=== PATIENT | male | born 1970 | race Caucasian/White ===

== ENCOUNTER 2024-09-17 14:51 | Emergency (ER) | payer OTHER, SELFPAY ==
[2024-09-17 15:06] VITALS: BP 145/77; PULSE 70; TEMP 36.6; O2SAT 99; BMI 22.8
--- NOTE | 2024-09-17 15:14 | XR_ITS ---
The [address] [address] Patient Name: TOMY FLORENTINO MRN: [id number] date: 1970 Sex: M Assigned Patient Location: ER Current Patient Location: ED.MAIN Accession/Order Number: [id number] Exam Date: 09/17/2024 15:20 Report Date: 09/17/2024 16:03 At the request of: SERJIO DUARTE Procedure: XR wrist LT min 3V EXAM: XR wrist LT min 3V HISTORY: laceration COMPARISON: None. TECHNIQUE: 3 views of the left wrist FINDINGS: There is no acute fracture or dislocation. No cortical erosion. There is lateral wrist laceration. No radiopaque foreign body or gas is noted within the soft tissue. XR/XR wrist LT min 3V IMPRESSION: No acute bony abnormality. Electronically authenticated by: SERA POTTER Date: 09/17/2024 16:03
--- NOTE | 2024-09-17 15:19 | ED.WOUNDLAC1 ---
HPI - Wound/Laceration General Chief Complaint: Wound/Laceration Stated Complaint: L HAND LACERATION Time Seen by Provider: 09/17/24 15:04 Source: patient and family Mode of arrival: walk-in Limitations: no limitations History of Present Illness HPI narrative: Patient is a 54-year-old male who presents to the emergency department for evaluation of a laceration to the left wrist. Patient is right-hand dominant. He states he was cutting a piece of wood with a razor blade and lacerated the radial aspect of the left wrist. Bleeding is controlled at this time. Unknown last tetanus. He had no other associated injuries. Related Data Previous Rx's ?Medication ?Instructions ?Recorded amoxicillin 875 mg-potassium 1 tab PO Q12H #20 tabs 09/17/24 clavulanate 125 mg tablet hydrocodone 5 mg-acetaminophen 325 1 tab PO Q6H PRN pain 3 days #12 09/17/24 mg tablet tabs ondansetron 4 mg disintegrating 4 mg PO Q6H PRN nausea and 09/17/24 tablet vomiting #12 tabs Allergies Allergy/AdvReac Type Severity Reaction Status Date / Time No Known Drug Allergies Allergy Verified 09/17/24 15:06 Review of Systems ROS Constitutional Denies: fever or chills Respiratory Denies: shortness of breath Gastrointestinal Denies: nausea or vomiting Musculoskeletal Reports: extremity pain; Denies: back pain or neck pain Integumentary/Breast Denies: rash Hematologic/Lymphatic Denies: easy bruising or easy bleeding PFSH PFSH Social History Little interest or pleasure in doing things: not at all Feeling down, depressed, or hopeless: not at all Exam Narrative Exam Narrative: Gen.: Awake, alert, in no distress Head: Normocephalic, atraumatic ENT: Moist mucous membranes Respiratory: No respiratory distress Extremities: 10 cm laceration extending from the first metacarpal laterally to the radial aspect of the wrist. There is no bony exposure. Patient is able to flex at the IP and MCP joints of the left thumb with limited extension of the left thumb at the IP and MCP joint. No visualized tendon laceration in the wound. Bleeding noted from a small capillary, no arterial bleeding or significant bleeding noted. Psych: Normal mood and affect Neuro: No focal neuro deficit Skin: Warm, dry Constitutional Vital Signs, click to edit/add: Last Vital Signs Temp 97.8 F 09/17/24 15:06 Pulse 78 09/17/24 16:25 Resp 16 09/17/24 16:25 BP 138/82 09/17/24 16:25 Pulse Ox 99 09/17/24 16:25 O2 Del Method Room Air 09/17/24 16:25 Course Vital Signs Vital signs: Vital Signs Temperature 97.8 F 09/17/24 15:06 Pulse Rate 70 09/17/24 15:06 Respiratory Rate 18 09/17/24 15:06 Blood Pressure 145/77 H 09/17/24 15:06 Pulse Oximetry 99 09/17/24 15:06 Oxygen Delivery Method Room Air 09/17/24 15:06 Temperature 97.8 F 09/17/24 15:06 Pulse Rate 78 09/17/24 16:25 Respiratory Rate 16 09/17/24 16:25 Blood Pressure 138/82 09/17/24 16:25 Pulse Oximetry 99 09/17/24 16:25 Oxygen Delivery Method Room Air 09/17/24 16:25 MDM - Wound/Laceration MDM Narrative Medical decision making narrative: Laceration was repaired without difficulty. Please see procedure note for details. Tetanus updated, [place] given for pain and Augmentin given for infection prevention. Based on exam, patient and his were counseled that he has likely lacerated the extensor tendon of the left thumb/wrist. He will need close orthopedic follow-up for reevaluation. Wound care was encouraged for home. Augmentin, [place], Zofran prescribed, follow-up with Dr. Knapp in 48 hours as scheduled and return to the ER if symptoms change or worsen. X-rays are unremarkable, patient is neurovascularly intact at discharge. Laceration repair: Done under sterile conditions. The use of Shur-Clens prep the area. Local injection with lidocaine 1% was used, approximately 16 cc. The wound was irrigated copiously with normal saline. The wound was explored there was no evidence of foreign material. 4, 3-0 Vicryl sutures were placed in the subcutaneous tissue for bleeding control and closer approximation of the wound. The skin was approximated with 3-0 nylon. 12 simple interrupted sutures were placed. Patient tolerated the procedure well. The patient was neurovascularly intact post. the patient had bacitracin applied to the laceration and a dry sterile dressing was placed with volar splint and maude wrap. The patient will need to follow-up in the next 10-14 days for removal SUPERVISED APC VISIT, PHYSICIAN ATTESTATION: Based on the medical record the care appears appropriate. ? Medical Records Attestation: I reviewed the patient's medical records. Imaging Data XR wrist: Attestation: I have reviewed the pertinent imaging results. Radiologist's impression: ITS Impressions Wrist X-Ray 09/17/24 15:14 IMPRESSION: No acute bony abnormality. Electronically authenticated by: SERA POTTER Date: 09/17/2024 16:03 Discharge Plan Discharge Chief Complaint: Wound/Laceration Clinical Impression: Laceration of left wrist, Extensor tendon laceration of left wrist with open wound Patient Disposition: Home, Self-Care Time of Disposition Decision: 15:17 Condition: Good Prescriptions / Home Meds: New hydrocodone-acetaminophen 5-325 mg tablet 1 tab PO Q6H PRN (Reason: pain) 3 Days Qty: 12 0RF Rx Instructions: DX: S61.512A amoxicillin-pot clavulanate 875-125 mg tablet 1 tab PO Q12H Qty: 20 0RF ondansetron 4 mg tablet,disintegrating 4 mg PO Q6H PRN (Reason: nausea and vomiting) Qty: 12 0RF Print Language: Slovenian Instructions: Laceration (ED), Tendon Laceration (ED) Additional Instructions: Sutures removed in 10-14 days Referrals: Viktor Knapp MD [Physician] - 09/19/24 10:45 am Discharge Date/Time: 09/17/24 16:12
[2024-09-17] MEDS: LIDOCAINE HCL 1% 100 MG/10 ML MDV 20 ML INJ (15:28)
[2024-09-17] MEDS: AMOXICILLIN/POT CLAV 875-125 MG TABLET 1 TAB PO (15:28)
[2024-09-17] MEDS: ADACEL DIPH,PERTUSS(ACELL),TET VAC/PF 0.5 ML ADULT SYRINGE IM (15:28)
[2024-09-17] MEDS: BACITRACIN OINTMENT 28.4 GM TUBE 1 APPLIC TOPICAL (15:28)
[2024-09-17 16:25] VITALS: BP 138/82; PULSE 78; O2SAT 99
== END 2024-09-17 16:12 | disposition home or self-care (01) ==
PROVIDERS: Emergency Provider Emergency Medicine; PCP Family Medicine
DX: S66.822A Laceration of other specified muscles, fascia and tendons at wrist and hand level, left hand, initial encounter (principal); W45.8XXA Other foreign body or object entering through skin, initial encounter; Z23 Encounter for immunization
CPT/HCPCS: 12004; 73110; 90471; 90715; 99283